=== PATIENT | male | born 2000 | race Caucasian/White ===

== ENCOUNTER 2020-10-26 10:54 | Emergency (ER) | payer OTHER ==
[~2020-10-26] VITALS: Ht 172.7 cm; Wt 58.1 kg
[2020-10-26] MEDS ORDERED: dexAMETHasone 10mg/ml Inj IV ONE (11:15)
--- NOTE | 2020-10-26 11:18 | Emergency Room Report ---
History of Present Illness General Chief Complaint: Allergic Reaction Source: Patient Present Illness HPI Patient is a 20-year-old male past medical history of allergy to peanuts who presents to the ER complaining of an allergic reaction. Patient states that he had a piece of bread approximately 20 to 30 minutes prior to arrival. He states that he might of had nuts in it. He states he has not had an allergic reaction since he was 4 years old so he does not know what it supposed to feel like. He states he felt like his throat was itchy and tight. He states that he started feeling short of breath. He denies any chest pain. He denies any fever or chills. He states he took 2 Benadryl prior to arrival. Patient does have an EpiPen but states that he did not take it. Patient states he has no difficulty speaking and is not drooling. He states that he does feel anxious. Allergies: Coded Allergies: Kiwi (Verified Allergy, Unknown, 10/26/20) PEANUT (Verified Allergy, Unknown, 10/26/20) COVID-19 Screening Contact w/high risk pt: No Experienced COVID-19 symptoms?: No COVID-19 Testing performed LINGO CLEANER: No Patient History Reviewed Nursing Documentation: PMH: Agreed; PSxH: Agreed Nursing Documentation-PMH Past Medical History: No Stated History Review of Systems All Other Systems: negative except mentioned in HPI Physical Exam Vital Signs Date Time Temp Pulse Resp B/P (MAP) Pulse Ox O2 Delivery O2 Flow Rate FiO2 10/26/20 10:56 98.1 75 21 117/75 (89) 97 Room Air Sp02 EP Interpretation: reviewed, normal General Appearance: no apparent distress, alert, GCS 15, non-toxic Head: normocephalic, atraumatic Eyes: bilateral eye normal inspection, bilateral eye PERRL ENT: hearing grossly normal, normal pharynx, no angioedema, normal voice, uvula midline, moist mucus membranes, other - No intraoral swelling Neck: full range of motion Respiratory: chest non-tender, lungs clear, normal breath sounds, no respiratory distress, no accessory muscle use Cardiovascular #1: tachycardia Gastrointestinal: non tender, soft Rectal: deferred Musculoskeletal: normal range of motion Neurologic: parking ramp attendant III-XII nml as tested, oriented x3 Psychiatric: anxious Skin: no rash Lymphatic: no adenopathy Medical Decision Making ER Course Patient took Benadryl prior to arrival. Patient given IV Decadron, IV fluids and Pepcid in the emergency room. Chest x-ray demonstrates no acute cardiopulmonary pathology. Patient never had any intraoral edema. On reevaluation patient states that he feels improved. He is tolerating p.o. Patient has an EpiPen at home. He will be discharged home with Benadryl, Pepcid and prednisone. After discussing risks and benefits of further diagnostics, treatment plans, as well as indications for and risks of admission, the patient is agreeable to being discharged home. I have explained that their evaluation and treatment in the emergency department today is an important step towards them achieving better health but that their evaluation today is not intended to replace further evaluation and treatment by a physician in their local clinic. I have explained that while the current findings suggest no immediate life threatening emergency they will require further evaluation and treatment by a physician of their choice in their area. They understand that it will be necessary for them to review the final reports of their ED visit with their [facility] physician. We have reviewed indications for return to the Emergency Department. I have explained that additional time may need to pass and/or additional testing as an outpatient may be necessary before a definitive diagnosis can be made. They tell me they are willing to follow up as instructed within the timeframe I recommend. They appear to understand what we discussed. Additionally they understand that if they are unable to be seen by an outpatient physician they are welcome, and in fact should, return to the Emergency Department for a repeat evaluation. The patient is stable at time of discharge. EKG Diagnostic Results Troponin ordered: No - ordered for allergic reaction EKG Time: 11:34 EP Interpretation: Whitney Keenan MD Rate: normal - 87 bpm Rhythm: NSR ST Segments: no acute changes ASA given to the pt in ED: No Rhythm Strip Diag. Results Rhythm Strip Time: 11:20 EP Interpretation: yes - Whitney Keenan MD Rate: 105 bpm Rhythm: no PVC's, no ectopy, other - Sinus tachycardia Chest X-Ray Diagnostic Results Chest X-Ray Diagnostic Results : Chest X-Ray Ordered: Yes # of Views/Limited/Complete: 1 View Indication: Shortness of Breath EP Interpretation: Yes Interpretation: no consolidation, no effusion, no pneumothorax, no acute cardiopulmonary disease Impression: No acute disease Electronically Signed by: Whitney Keenan MD Last Vital Signs Date Time Temp Pulse Resp B/P (MAP) Pulse Ox O2 Delivery O2 Flow Rate FiO2 10/26/20 10:56 98.1 75 21 117/75 (89) 97 Room Air Disposition: HOME, SELF-CARE Condition: Stable Scripts Famotidine* (Pepcid 20mg tablet*) 20 Mg Tablet 20 MG ORAL TWICE A DAY for Gerd, #20 TAB 0 Refills Prov: Whitney Keenan M.D. 10/26/20 Diphenhydramine Hcl* (BENADRYL*) 25 Mg Capsule 25 MG ORAL Q6H PRN for Itching, #20 CAP Prov: Whitney Keenan M.D. 10/26/20 Prednisone* (PREDNISONE*) 20 Mg Tablet 40 MG ORAL DAILY, #10 TAB Prov: Whitney Keenan M.D. 10/26/20 Referrals: NOT CHOSEN IPA/,REFERRING (PCP) Additional Instructions: The patient was provided with discharge instructions, notified to follow-up with a primary care doctor and or specialist in the next 24-48 hours, and to return to the ED if they have worsening of their symptoms. Please note that this report is being documented using [employer] technology. This can lead to erroneous entry secondary to incorrect interpretation by the dictating instrument. Whitney Keenan M.D. Oct 26, 2020 11:18
[2020-10-26 11:20] VITALS: BP 117/75
--- NOTE | 2020-10-26 11:34 | Diagnostic Imaging Report ---
EXAM: XR Chest, 1 View CLINICAL HISTORY: SOB TECHNIQUE: Frontal view of the chest. COMPARISON: None FINDINGS: Hardware: None. Lungs/pleura: Normal. No focal consolidation. No pleural effusion or pneumothorax. Heart/mediastinum: Normal. No cardiomegaly. Soft tissues: Unremarkable. Bones: No acute fracture. Upper abdomen: Normal. IMPRESSION: No acute disease identified.
[2020-10-26] MEDS ORDERED: FAMOTIDINE20 MG ORAL (11:38)
[2020-10-26] MEDS ORDERED: BENADRYL25 MG ORAL (11:38)
[2020-10-26] MEDS ORDERED: PREDNISONE20 MG ORAL (11:38)
[2020-10-26 12:25] VITALS: BP 112/68
== END 2020-10-26 12:25 | disposition home or self-care (01) ==
LOC: EMR 11:07
DX: T78.40XA Allergy, unspecified, initial encounter (principal); X58.XXXA Exposure to other specified factors, initial encounter; Y92.9 Unspecified place or not applicable; Z91.010 Allergy to peanuts; Z91.018 Allergy to other foods; R00.0 Tachycardia, unspecified
CPT/HCPCS: 71045; 93005; 96361; 96374; 96375; 99284; J7030; S0028